=== PATIENT | male | born 1995 | race Caucasian/White ===

== ENCOUNTER → 2021-09-14 | Outpatient (CLI) | payer SELFPAY | END | disposition home or self-care (01) | LOC: LAB SHORT 11:15 | DX: R07.0 Pain in throat (principal) | CPT/HCPCS: 87081 ==

== ENCOUNTER 2025-07-24 17:20 | Emergency (ER) | payer BC ==
[~2025-07-24] VITALS: Ht 182.9 cm; Wt 86.2 kg
[2025-07-24 17:48] VITALS: BP 166/100
[2025-07-24] MEDS ORDERED: OxyCODONE 5 mg/Acetamin 325 mg TABLET PO ONE (17:55)
[2025-07-24] MEDS ORDERED: Silver Sulfadiazine 1% Cream 25 APPLIC/25 GM Tube TOP ONE (17:55)
[2025-07-24] MEDS ORDERED: RX Prepack 6 Tabs Oxycodone 5mg UD ONE (19:40)
== END 2025-07-24 19:58 | disposition home or self-care (01) ==
LOC: ER 17:20
DX: T20.10XA Burn of first degree of head, face, and neck, unspecified site, initial encounter (principal); T20.14XA Burn of first degree of nose (septum), initial encounter; T20.17XA Burn of first degree of neck, initial encounter; X19.XXXA Contact with other heat and hot substances, initial encounter
CPT/HCPCS: 71046; 99283-25; A9270